=== PATIENT | female | born 1955 | race Hispanic/Latino ===

== ENCOUNTER 2016-06-06 20:17 | Emergency (ER) | payer OTHER ==
[2016-06-06 20:17] VITALS: BMI 21.4
[2016-06-06 20:44] VITALS: RESP 20
--- NOTE | 2016-06-06 21:14 | C.PDOC ---
History Of Present Illness 61 year old female with a history of anxiety and HTN, presents to the ED with complaints of an "anxiety attack". Patient states she feels anxious and reports she checked her blood pressure and noticed it was elevated. She is requesting medication for her anxiety and declined any work up or imaging. Previous records reviewed showing the patient was evaluated here several times for similar complaints. Time Seen by Provider: 06/06/16 21:01 Chief Complaint (Nursing): High Blood Sugar History Per: Patient History/Exam Limitations: no limitations Onset/Duration Of Symptoms: Hrs, Waxing/Waning Current Symptoms Are (Timing): Still Present Associated Symptoms: denies: Chest Pain Past Medical History Reviewed: Historical Data, Nursing Documentation, Vital Signs Vital Signs: Last Vital Signs Temp 97.6 F 06/06/16 22:05 Pulse 82 06/06/16 22:05 Resp 20 06/06/16 22:05 BP 151/86 H 06/06/16 22:05 Pulse Ox 97 06/06/16 22:06 - Medical History PMH: Anxiety (about health issues.), HTN, Migraine - [facility] Procedures INJECT/INFUSE NEC (11/23/12) Family History: States: Unknown Family Hx - Social History Hx Tobacco Use: No Hx Alcohol Use: No Hx Substance Use: No - Immunization History Hx Tetanus Toxoid Vaccination: No Hx Influenza Vaccination: No (DECLINES) Hx Pneumococcal Vaccination: No Review Of Systems Except As Marked, All Systems Reviewed And Found Negative. Constitutional: Negative for: Fever, Chills Cardiovascular: Negative for: Chest Pain, Palpitations Respiratory: Negative for: Cough, Shortness of Breath Gastrointestinal: Negative for: Nausea, Vomiting, Abdominal Pain Neurological: Negative for: Weakness, Numbness Physical Exam - Physical Exam Appears: Non-toxic, No Acute Distress, Other (+Slightly anxious appearing) Skin: Warm, Dry Head: Atraumatic, Normacephalic Eye(s): bilateral: Normal Inspection Oral Mucosa: Moist Chest: Symmetrical Cardiovascular: Rhythm Regular Respiratory: Normal Breath Sounds, No Accessory Muscle Use, No Rales, No Rhonchi , No Wheezing Extremity: Normal ROM Neurological/Psych: Oriented x3, Normal Speech, Normal Cognition ED Course And Treatment O2 Sat by Pulse Oximetry: 97 (Room air) Pulse Ox Interpretation: Normal Medical Decision Making Medical Decision Making: Patient treated with Xanax. pt declines any workup imaging, requesting "her anxiety to be treated". Upon reevaluation, patient is resting comfortably, no longer feels anxious, and is in no acute distress. Patient was instructed to follow up with her PMD in 1- 2 days for further evaluation. b/p improved. on phone in nad Disposition - Disposition Disposition: HOME/ ROUTINE Disposition Time: 22:05 Condition: STABLE Additional Instructions: please followup outpt. return to er with worsening symptoms or concerns. Instructions: Anxiety (ED), Hypertension (ED) - Clinical Impression Clinical Impression: Anxiety - Scribe Statement The provider has reviewed the documentation as recorded by the Scribe Ruchi Mathew. Provider Attestation: All medical record entries made by the Scribe were at my direction and personally dictated by me. I have reviewed the chart and agree that the record accurately reflects my personal performance of the history, physical exam, medical decision making, and the department course for this patient. I have also personally directed, reviewed, and agree with the discharge instructions and disposition.
[2016-06-06 22:05] VITALS: BP 151/86; PULSE 82
[2016-06-06 22:06] VITALS: TEMP 97.6; O2SAT 97
== END 2016-06-06 22:18 | disposition home or self-care (01) ==
LOC: C.ER 20:17
DX: F41.9 Anxiety disorder, unspecified (principal); I10 Essential (primary) hypertension

== ENCOUNTER 2016-06-27 15:11 | Emergency (ER) | payer MEDICAID, OTHER ==
[2016-06-27 15:25] VITALS: BMI 22.3
--- NOTE | 2016-06-27 16:35 | C.PDOC ---
History Of Present Illness 61 year old female with a history of anxiety, presents to the ED with complaints of developing a migraine after she had blood taken for blood work while at the hospital yesterday. She notes it got worse causing her anxiety to get worse and her blood pressure to elevate. She has not taken any of her medications and denies vomiting, fever, visual changes, or any other complaints at this time. Time Seen by Provider: 06/27/16 15:59 Chief Complaint (Nursing): Headache History Per: Patient History/Exam Limitations: no limitations Onset/Duration Of Symptoms: Days Current Symptoms Are (Timing): Still Present Severity: Mild Preceeding Symptoms: None Past Medical History Reviewed: Historical Data, Nursing Documentation, Vital Signs Vital Signs: Last Vital Signs Temp 98.0 F 06/27/16 18:14 Pulse 85 06/27/16 18:14 Resp 20 06/27/16 18:14 BP 168/89 H 06/27/16 18:34 Pulse Ox 99 06/27/16 18:42 - Medical History PMH: Anxiety (about health issues.), HTN, Migraine - [facility] Procedures INJECT/INFUSE NEC (11/23/12) Family History: States: Unknown Family Hx - Social History Hx Tobacco Use: No Hx Alcohol Use: No Hx Substance Use: No Review Of Systems Except As Marked, All Systems Reviewed And Found Negative. Constitutional: Positive for: Other (Elevated blood pressure). Negative for: Fever, Chills Neurological: Positive for: Headache (+Migraine) Psych: Positive for: Anxiety Physical Exam - Physical Exam Appears: Non-toxic, No Acute Distress, Other (+Anxious) Skin: Normal Color, Warm, Dry Head: Atraumatic, Normacephalic Eye(s): bilateral: Normal Inspection, PERRL, EOMI Oral Mucosa: Moist Neck: Supple Chest: Symmetrical, No Deformity Cardiovascular: Rhythm Regular Respiratory: Normal Breath Sounds, No Accessory Muscle Use Neurological/Psych: Oriented x3, Normal Speech, Normal Cognition, No Cerebellar Signs, Normal Motor, Normal Sensation ED Course And Treatment O2 Sat by Pulse Oximetry: 99 (Room air) Pulse Ox Interpretation: Normal Progress Note: Patient treated with Motrin but declined buspar. Medical Decision Making Medical Decision Making: BP improved without meds Pt feeling better post motrin, discussed anxiety as the cuase or al least making it worse however pt still declined buspar Post motrin feeing better No indication for further work up at this time Plan dc home Disposition Counseled Patient/Family Regarding: Diagnosis, Need For Followup - Disposition Referrals: Clinic,Med Surg [Primary Care Provider] - Disposition: HOME/ ROUTINE Disposition Time: 16:31 Condition: GOOD Additional Instructions: Take motrin for pain if needed Prescriptions: Ibuprofen [Motrin] 1 tab PO TID PRN #30 tab PRN Reason: .headache Instructions: Generalized Anxiety Disorder (ED), Acute Headache (ED) - Clinical Impression Clinical Impression: Anxiety about health, Headache - Scribe Statement The provider has reviewed the documentation as recorded by the Scribe Ruchi Mathew. Provider Attestation: All medical record entries made by the Scribe were at my direction and personally dictated by me. I have reviewed the chart and agree that the record accurately reflects my personal performance of the history, physical exam, medical decision making, and the department course for this patient. I have also personally directed, reviewed, and agree with the discharge instructions and disposition.
[2016-06-27 18:15] VITALS: PULSE 85; RESP 20; TEMP 98
[2016-06-27 18:17] VITALS: O2SAT 99
[2016-06-27 18:34] VITALS: BP 168/89
== END 2016-06-27 18:34 | disposition home or self-care (01) ==
LOC: SUPCPDRO 15:11 → C.ER 15:11
DX: F41.8 Other specified anxiety disorders (principal); R51 Headache

== ENCOUNTER 2016-07-07 13:19 | Emergency (ER) | payer OTHER ==
[2016-07-07 13:19] VITALS: BMI 22.3
[2016-07-07 13:25] VITALS: O2SAT 99
--- NOTE | 2016-07-07 14:02 | C.PDOC ---
History Of Present Illness 61 year old female presents to the ED requesting anxiety medication. Patient states she noticed her blood pressure was elevated at home and notes she has a prescription for Buspar from her PMD however she does not take it because it makes her dizzy. Patient has many prior visits for the same and no physical complaints at this time. Time Seen by Provider: 07/07/16 13:49 Chief Complaint (Nursing): High Blood Pressure History Per: Patient History/Exam Limitations: no limitations Onset/Duration Of Symptoms: Hrs Current Symptoms Are (Timing): Still Present Suicide/Self Injury Attempted (Context): None Associated Symptoms: Anxiety Past Medical History Reviewed: Historical Data, Nursing Documentation, Vital Signs Vital Signs: Last Vital Signs Temp 98.1 F 07/07/16 14:30 Pulse 82 07/07/16 14:30 Resp 17 07/07/16 14:30 BP 153/84 H 07/07/16 14:30 Pulse Ox 99 07/07/16 14:30 - Medical History PMH: Anxiety (about health issues.), HTN, Migraine - [facility] Procedures INJECT/INFUSE NEC (11/23/12) Family History: States: Unknown Family Hx - Social History Hx Tobacco Use: No Hx Alcohol Use: No Hx Substance Use: No - Immunization History Hx Tetanus Toxoid Vaccination: No Hx Influenza Vaccination: No (DECLINES) Hx Pneumococcal Vaccination: No Review Of Systems Except As Marked, All Systems Reviewed And Found Negative. Constitutional: Positive for: Other (+Elevated blood pressure). Negative for: Fever, Chills Cardiovascular: Negative for: Chest Pain Respiratory: Negative for: Shortness of Breath Neurological: Negative for: Weakness, Numbness Psych: Positive for: Anxiety Physical Exam - Physical Exam Appears: Non-toxic, No Acute Distress, Other (+hyperkenetic) Skin: Normal Color, Warm, Dry Head: Atraumatic, Normacephalic Eye(s): bilateral: Normal Inspection Oral Mucosa: Moist Chest: Symmetrical, No Deformity Cardiovascular: Rhythm Regular Respiratory: Normal Breath Sounds, No Accessory Muscle Use Extremity: Normal ROM Neurological/Psych: Oriented x3, Other (+Pressured speech) ED Course And Treatment O2 Sat by Pulse Oximetry: 99 (Room air) Pulse Ox Interpretation: Normal Progress Note: Patient treated with Klonopin. Medical Decision Making Medical Decision Making: anxiety, poorly controlled on Buspar x 1 week (with poor compliance) makes her dizzy Xanax gives her headaches. PMD out of town for 2 weeks. Explained unable to refill or prescribe controlled substances for chronic issues [place] reviewed- last Xanax rx 10/01, recent Buspar Rx not noted. Many prior evals for same, usually given Xanax PO mild elev BP related to anxiety, defer adjusting BP/HTN meds until anxiety better controlled. Disposition Doctor Will See Patient In The: Office Counseled Patient/Family Regarding: Studies Performed, Diagnosis - Disposition Referrals: Berto Molina MD [Doctor Oste[facility]] - Disposition: HOME/ ROUTINE Disposition Time: 14:01 Condition: GOOD Additional Instructions: you were given Klonopin 0.5 mg x 1 dose in the ER Please follow-up with your PMD for further adjustments and refills of your chronic anxiety medications. Instructions: Anxiety (ED) - Clinical Impression Clinical Impression: Anxiety, Anxiety about health - Scribe Statement The provider has reviewed the documentation as recorded by the Scribe Ruchi Mathew. Provider Attestation: All medical record entries made by the Gregoriaibchristie were at my direction and personally dictated by me. I have reviewed the chart and agree that the record accurately reflects my personal performance of the history, physical exam, medical decision making, and the department course for this patient. I have also personally directed, reviewed, and agree with the discharge instructions and disposition.
[2016-07-07 14:31] VITALS: BP 153/84; PULSE 82; RESP 17; TEMP 98.1
== END 2016-07-07 15:00 | disposition home or self-care (01) ==
LOC: C.ER 13:19
DX: I10 Essential (primary) hypertension (principal); F06.4 Anxiety disorder due to known physiological condition

== ENCOUNTER 2016-07-08 12:55 | Emergency (ER) | payer OTHER ==
[2016-07-08 12:55] VITALS: BMI 22.3
[2016-07-08 13:03] VITALS: BP 156/94; PULSE 100; RESP 18; TEMP 97.7; O2SAT 98
--- NOTE | 2016-07-08 13:17 | C.PDOC ---
History Of Present Illness 61 y/o female presents to the ED requesting Klonipin Rx. Pt has had multiple ER visits since 05/2016 for similar symptoms. Pt seem 07/07 given 1 dose Klonipin and is requesting new Rx for same; no prior Rx for klonipin. Pt states tried to see PMD for Rx but PMD is on vacation this week. Pt states does not wish to take Buspar due to side effects. Pt denies other symptoms. REQUESTING KLONIPIN RX. MULTIPLE ER VISITS SINCE 05/2016 FOR SIM SX. SEEN 07/07, GIVEN KLONIPIN AND IS REQUESTING NEW RX FOR SAME. NO PRIOR RX FOR SAME. PS TRIED TO SEE PMD FOR RX BUT PMD ON VACATION THIS WEEK. PS DOES NOT WISH TO TAKE BUSPAR DUE TO SIDE EFFECTS. DENIES OTHER SX EXAM NEG MDM ADVISED NEED TO SEE PMD OR CRISIS FOR FURTHER ANXIETY MED MANAGEMENT. PT REFUSING CRISIS EVAL. Time Seen by Provider: 07/08/16 13:06 Chief Complaint (Nursing): Med Refill History Per: Patient History/Exam Limitations: no limitations Severity: None Reports Recently: Seen In ED Recent travel outside of the [place]: No Past Medical History Reviewed: Historical Data, Nursing Documentation, Vital Signs Vital Signs: Last Vital Signs Temp 97.7 F 07/08/16 13:02 Pulse 100 H 07/08/16 13:02 Resp 18 07/08/16 13:02 BP 156/94 H 07/08/16 13:02 Pulse Ox 98 07/08/16 13:19 - Medical History PMH: Anxiety (about health issues.), HTN, Migraine - [facility] Procedures INJECT/INFUSE NEC (11/23/12) Family History: States: Unknown Family Hx - Social History Hx Tobacco Use: No Hx Alcohol Use: No Hx Substance Use: No - Immunization History Hx Tetanus Toxoid Vaccination: No Hx Influenza Vaccination: No (DECLINES) Hx Pneumococcal Vaccination: No Review Of Systems Except As Marked, All Systems Reviewed And Found Negative. Physical Exam - Physical Exam Appears: Non-toxic, No Acute Distress Skin: Warm, Dry Head: Atraumatic, Normacephalic Cardiovascular: Rhythm Regular Respiratory: Normal Breath Sounds, No Rales, No Rhonchi, No Wheezing Extremity: Bilateral: Atraumatic Neurological/Psych: Oriented x3 ED Course And Treatment O2 Sat by Pulse Oximetry: 98 (on room air) Pulse Ox Interpretation: Normal Progress - Re-Evaluation Re-evaluation Note: 07/08/16 13:19 [place] RX REVIEWED 09/21/2015 LORAZEPAM 0.5 MG TABLET 5 1 - Data Reviewed Data Reviewed: Old records, Other Medical Decision Making Medical Decision Making: Advised patient that she needs to see PMD or CRISIS for further anxiety medication management. Pt refusing CRISIS evaluation. Disposition Counseled Patient/Family Regarding: Diagnosis, Need For Followup - Disposition Referrals: YOUR,PMD [Other] Disposition: HOME/ ROUTINE Disposition Time: 13:15 Condition: GOOD Additional Instructions: SEE YOUR PMD FOR YOUR REQUESTING MED REFILL. Instructions: Medicine Refill (ED) - Clinical Impression Clinical Impression: Review of medication, Anxiety - Scribe Statement The provider has reviewed the documentation as recorded by the Sridhar Amador Provider Attestation: All medical record entries made by the Sridhar were at my direction and personally dictated by me. I have reviewed the chart and agree that the record accurately reflects my personal performance of the history, physical exam, medical decision making, and the department course for this patient. I have also personally directed, reviewed, and agree with the discharge instructions and disposition.
== END 2016-07-08 13:40 | disposition home or self-care (01) ==
LOC: C.ER 12:55
DX: F41.9 Anxiety disorder, unspecified (principal)

== ENCOUNTER 2016-09-06 20:13 | Emergency (ER) | payer OTHER ==
[2016-09-06 20:13] VITALS: BMI 22.3
[2016-09-06 20:24] VITALS: PULSE 95; RESP 20; TEMP 98.7; O2SAT 98
[2016-09-06] MEDS ORDERED: hydrOXYzine HCl 25 mg/ml Inj IM STA (20:43)
--- NOTE | 2016-09-06 20:44 | C.PDOC ---
Chief Complaint (Nursing): Anxiety Past Medical History Vital Signs: Last Vital Signs Temp 98.7 F 09/06/16 20:16 Pulse 95 H 09/06/16 20:16 Resp 20 09/06/16 20:16 BP 178/83 H 09/06/16 20:16 Pulse Ox 98 09/06/16 20:16 - Medical History PMH: Anxiety (about health issues.), HTN, Migraine - [facility] Procedures INJECT/INFUSE NEC (11/23/12) Family History: States: Unknown Family Hx - Social History Hx Tobacco Use: No Hx Alcohol Use: No Hx Substance Use: No - Immunization History Hx Tetanus Toxoid Vaccination: No Hx Influenza Vaccination: No (DECLINES) Hx Pneumococcal Vaccination: No ED Course And Treatment O2 Sat by Pulse Oximetry: 98 Progress Note: BP- 143/62
--- NOTE | 2016-09-06 20:46 | C.PDOC ---
History Of Present Illness A 61 y/o female with a Hx of vertigo and anxiety disorder, c/o feeling anxious, dizziness, and having high BP at home today. Pt denies fever, chills, nausea, vomiting, diarrhea, SOB, Chest pain, Palpitations, Diaphoresis, lightheaded, lower extremity pain, suicidal or homicidal ideation, or any other complaints. Time Seen by Provider: 09/06/16 20:46 Chief Complaint (Nursing): Anxiety History Per: Patient History/Exam Limitations: no limitations Onset/Duration Of Symptoms: Hrs Current Symptoms Are (Timing): Still Present Suicide/Self Injury Attempted (Context): None Modifying Factor(s): None Severity: Mild Associated Symptoms: Anxiety. denies: Suicidal Thoughts, Suicidal Plan Involuntary Hold By: None Recent travel outside of the [place]: No Additional History Per: Patient Past Medical History Reviewed: Historical Data, Nursing Documentation, Vital Signs Vital Signs: Last Vital Signs Temp 98.7 F 09/06/16 20:16 Pulse 95 H 09/06/16 20:16 Resp 20 09/06/16 20:16 BP 143/62 09/06/16 20:50 Pulse Ox 98 09/06/16 22:09 - Medical History PMH: Anxiety (about health issues.), HTN, Migraine Other PMH: vertigo - [facility] Procedures INJECT/INFUSE NEC (11/23/12) Family History: States: Unknown Family Hx - Social History Hx Tobacco Use: No Hx Alcohol Use: No Hx Substance Use: No - Immunization History Hx Tetanus Toxoid Vaccination: No Hx Influenza Vaccination: No (DECLINES) Hx Pneumococcal Vaccination: No Review Of Systems Except As Marked, All Systems Reviewed And Found Negative. Constitutional: Positive for: Other (High BP). Negative for: Fever, Chills, Sweats Cardiovascular: Negative for: Chest Pain, Palpitations, Light Headedness Respiratory: Negative for: Shortness of Breath Gastrointestinal: Negative for: Nausea, Vomiting, Diarrhea Musculoskeletal: Negative for: Leg Pain Neurological: Positive for: Dizziness Psych: Positive for: Anxiety. Negative for: Suicidal ideation, Other ( Homicidal ideation) Physical Exam - Physical Exam Appears: Non-toxic, No Acute Distress, Other (BP 143/62) Skin: Warm, Dry Head: Atraumatic, Normacephalic Eye(s): bilateral: Normal Inspection Oral Mucosa: Moist Throat: Normal, No Exudate Chest: Symmetrical Cardiovascular: Rhythm Regular, No Murmur Respiratory: Normal Breath Sounds, No Accessory Muscle Use, No Rales, No Rhonchi , No Wheezing Gastrointestinal/Abdominal: Soft, No Tenderness Neurological/Psych: Oriented x3, Normal Speech, Normal Cognition, Other (No focal deficit) Gait: Steady ED Course And Treatment O2 Sat by Pulse Oximetry: 98 (RA) Pulse Ox Interpretation: Normal Progress Note: BP- 143/62 Medical Decision Making Medical Decision Making: Impression: A 61 y/o female c/o feeling anxious, dizziness, and having high BP at home today. Plans: Atarax Reassess Pt has frequent visit of the same complaint of dizziness and anxiety and has been wanting refills of chronic pain medications. Disposition Counseled Patient/Family Regarding: Diagnosis - Disposition Referrals: at [facility] [Outside] Disposition Time: 22:10 Condition: STABLE Prescriptions: hydrOXYzine HCl [Atarax] 10 mg PO TID #10 tab Instructions: Generalized Anxiety Disorder (ED) - POA Present On Arrival: None - Clinical Impression Clinical Impression: Anxiety - Scribe Statement The provider has reviewed the documentation as recorded by the Scribe Tony cerrato All medical record entries made by the Scribe were at my direction and personally dictated by me. I have reviewed the chart and agree that the record accurately reflects my personal performance of the history, physical exam, medical decision making, and the department course for this patient. I have also personally directed, reviewed, and agree with the discharge instructions and disposition.
[2016-09-06 20:50] VITALS: BP 143/62
== END 2016-09-06 22:31 | disposition home or self-care (01) ==
LOC: C.ER 20:13
DX: F41.9 Anxiety disorder, unspecified (principal)

== ENCOUNTER 2017-12-22 10:52 | Observation (INO) | payer OTHER ==
[2017-12-22 10:52] VITALS: BMI 24.0
[2017-12-22 12:23] LABS: BASO # 0.1 K/uL (0.0-0.2); BASO % 0.8 % (0.0-2.0); EOS # 0.2 K/uL (0.0-0.7); EOS % 2.5 % (0.0-4.0); HEMOGLOBIN 12.8 g/dL (11.0-16.0); LYMPH # 1.4 K/uL (1.0-4.3); LYMPH % 18.2 % (20.0-40.0); MEAN CELL VOLUME 80.6 fL (81.0-99.0); MEAN CORPUSCULAR HEMOGLOBIN 26.5 pg (27.0-31.0); MEAN CORPUSCULAR HGB CONC 32.9 g/dL (33.0-37.0); MEAN PLATELET VOLUME 11.1 fL (7.2-11.7); MONO # 0.8 K/uL (0.0-0.8); MONO % 9.6 % (0.0-10.0); NEUT # 5.5 K/uL (1.8-7.0); NEUT % 68.9 % (50.0-75.0); RBC 4.81 Mil/uL (3.80-5.20); RED CELL DISTRIBUTION WIDTH 13.6 % (11.5-14.5); WHITE BLOOD COUNT 7.9 K/uL (4.8-10.8)
[2017-12-22 12:35] LABS: ALB/GLOB RATIO 1.3 (1.0-2.1); ALBUMIN 4.3 g/dL (3.5-5.0); ALT/SGPT 41 U/L (9-52); AST/SGOT 41 U/L (14-36); BLOOD UREA NITROGEN 16 mg/dL (7-17); CALCIUM 9.5 mg/dl (8.6-10.4); GFR NON-AFRICAN AMERICAN > 60
[2017-12-22 12:36] LABS: INR 1.1
--- NOTE | 2017-12-22 13:06 | C.PDOC ---
History Of Present Illness 62 year old female patient presents to the ER with c/o fever, cough and pain in the middle of the chest for x4 days. Patient reports she has been in contact with people with upper respiratory symptoms. Patient states she went to her PMD x2 days ago but the office was packed so she was not able to see the PMD. Patient went to [facility] yesterday where she received a CXR which showed bronchitis. Patient was prescribed Zithromax but did not fill out prescription. Patient bp was 210/110, stated she took Xanax and came to the ER. Time Seen by Provider: 12/22/17 11:22 Chief Complaint (Nursing): Chest Pain History Per: Patient History/Exam Limitations: no limitations Onset/Duration Of Symptoms: Days (x4) Current Symptoms Are (Timing): Still Present Quality: "Pain" Past Medical History Reviewed: Historical Data, Nursing Documentation, Vital Signs Vital Signs: Last Vital Signs Temp 98.4 F 12/22/17 11:03 Pulse 108 H 12/22/17 11:03 Resp 20 12/22/17 11:03 BP 159/96 H 12/22/17 11:03 Pulse Ox 96 12/22/17 11:03 - Medical History PMH: Anxiety (about health issues.), HTN, Migraine - [facility] Procedures INJECT/INFUSE NEC (11/23/12) Family History: States: Hypertension - Social History Hx Tobacco Use: No Hx Alcohol Use: No Hx Substance Use: No - Immunization History Hx Tetanus Toxoid Vaccination: No Hx Influenza Vaccination: No (DECLINES) Hx Pneumococcal Vaccination: No Review Of Systems Except As Marked, All Systems Reviewed And Found Negative. Constitutional: Positive for: Fever Cardiovascular: Positive for: Chest Pain Respiratory: Positive for: Cough Physical Exam - Physical Exam Appears: Non-toxic, Other (slightly anxious) Skin: Normal Color, Warm, Dry Head: Normacephalic Eye(s): bilateral: Normal Inspection, EOMI Oral Mucosa: Moist Throat: Normal Chest: Symmetrical, No Deformity Cardiovascular: Rhythm Regular Respiratory: Normal Breath Sounds Extremity: Normal ROM (x4) Neurological/Psych: Oriented x3, Normal Speech ED Course And Treatment - Laboratory Results Result Diagrams: 12/22/17 12:19 12/22/17 12:19 ECG: Interpreted By Me, Viewed By Me ECG Interpretation: Normal, No Acute Changes Rate From EC O2 Sat by Pulse Oximetry: 96 (RA) Pulse Ox Interpretation: Normal - Other Rad chest X-Ray: Read By Radiologist Interpretation: Accession No. : [id number]. Patient Name / ID : SHANNON BRADY / [id number]. Exam Date : 12/22/2017 12:08:15 ( Approved ). Study Comment : Sex / Age : F / 62Y. Creator : Juno Alvarado MD. Dictator : Juno Alvarado MD. Model Maker Plaster : Refrigeration System Installer : Juno Alvarado MD. Approver2 : Report Date : 12/22/2017 14:26:40. My Comment : . Date of service: 12/22/2017. PROCEDURE: CHEST RADIOGRAPH, 1 VIEW. HISTORY: SOB, cough, CP. COMPARISON: Comparison chest 02/03/2016. FINDINGS: LUNGS: Mild left basilar atelectasis and/or scarring. PLEURA: No pneumothorax or pleural fluid seen. CARDIOVASCULAR: Normal. OSSEOUS STRUCTURES: No significant abnormalities. VISUALIZED UPPER ABDOMEN: Normal. OTHER FINDINGS: None. IMPRESSION: Mild left basilar atelectasis and/or scarring Progress Note: Impression: fever, cough and chest pain. Plans: -- EKG. -- chem lab. -- blood work. -- CXR. -- UA Disposition - Disposition Disposition: HOSPITALIZED Disposition Time: 13:50 Condition: FAIR - Clinical Impression Clinical Impression: Chest pain Decision To Admit - Pt Status Changed To: Hospital Disposition Of: Observation - . Bed Request Type: Telemetry Admitting Physician: Dewey Martinez Patient Diagnosis: Chest pain
[2017-12-22 13:11] LABS: URINE BILIRUBIN NEGATIVE (NEGATIVE); URINE BLOOD NEGATIVE (NEGATIVE); URINE CLARITY Clear (Clear); URINE COLOR Colorless (YELLOW); URINE GLUCOSE (UA) NORMAL (Normal); URINE LEUKOCYTE ESTERASE NEG Leu/uL (Negative); URINE PROTEIN NEGATIVE (NEGATIVE); URINE UROBILINOGEN NORMAL mg/dL (0.2-1.0)
--- NOTE | 2017-12-22 14:28 | RAD ---
Date of service: 12/22/2017 PROCEDURE: CHEST RADIOGRAPH, 1 VIEW HISTORY: SOB, cough, CP COMPARISON: Comparison chest 02/03/2016 FINDINGS: LUNGS: Mild left basilar atelectasis and/or scarring PLEURA: No pneumothorax or pleural fluid seen. CARDIOVASCULAR: Normal. OSSEOUS STRUCTURES: No significant abnormalities. VISUALIZED UPPER ABDOMEN: Normal. OTHER FINDINGS: None. IMPRESSION: Mild left basilar atelectasis and/or scarring
[2017-12-22] MEDS ORDERED: Azithromycin 500 MG in Sodium Chloride 0.9% 250 ML IVPB SCH (17:15)
[2017-12-22] MEDS ORDERED: Azithromycin 500mg/250ML NS 500 MG/250 ML BAG IVPB ONE (17:30)
[2017-12-22 18:33] VITALS: RESP 20
[2017-12-22] MEDS ORDERED: Pneumococcal 23-Valent Vaccine IM ONE (19:19)
[2017-12-22] MEDS ORDERED: Influenza Vaccine 60 MCG/0.5 ML SYR (3 yr & up) IM ONE (19:23)
--- NOTE | 2017-12-22 19:39 | CP.PCM.HP ---
<Brett Balbuena - Last Filed: 12/22/17 19:35> History of Present Illness - History of Present Illness History of Present Illness: PGY-1 H&P note for Dr Dewey Martinez cc: cough with chest tightness, high blood pressure This is a 62 yo female of HTN, anxiety, migraine and vertigo who came to hospital for chest pain and tightness associated with productive coughing and fevers that started on sunday. Patient said she went [place] a recreational center and was exposed to people being sick there. Patient went to [facility] and was discharge with a diagnosis of bronchitis and was given azythromycin PO which she did not filled. Patient decided to come to the hospital after continuing symptoms of chest pain and coughing. She checke her blood pressure at home and was 197/112 and her heart rate was 122. Patient says she took both her blood pressure medication and her anxiety medication today before coming to the hospital. Patient denies shortness of breath, nausea, vomiting, abdominal pain, diarrhea, constipation, rashes or dysuria. All: Penicillin Meds: Metoprolol (toprol XL) 25 mg PO daily, Xanax PO TID Pmhx: HTN, anxiety, migraines, vertigo Pshx: hysterectomy (2011) Fmhx: DM, HTN, anxiety Sochx: denies tobacco, alcohol or illicit drug use. Patient is currently on disability Present on Admission - Present on Admission Any Indicators Present on Admission: No Review of Systems - Constitutional Constitutional: Chills, Fever - EENT Eyes: absent: Blurred Vision - Cardiovascular Cardiovascular: Chest Pain. absent: Dyspnea - Respiratory Respiratory: Cough. absent: Dyspnea - Gastrointestinal Gastrointestinal: absent: Abdominal Pain, Constipation, Diarrhea, Nausea, Vo miting - Genitourinary Genitourinary: absent: Dysuria, Urinary Frequency - Musculoskeletal Musculoskeletal: absent: Muscle Weakness - Integumentary Integumentary: absent: Rash - Neurological Neurological: absent: Dizziness - Hematologic/Lymphatic Hematologic: absent: Easy Bleeding, Easy Bruising Past Patient History - Infectious Disease Hx of Infectious Diseases: None - Past Social History Smoking Status: Never Smoked - CARDIAC Hx Hypertension: Yes - PULMONARY Hx Tuberculosis: No - NEUROLOGICAL Hx Migraine: Yes - HEMATOLOGICAL/ONCOLOGICAL Hx Human Immunodeficiency Virus (HIV): No - GENITOURINARY/GYNECOLOGICAL Hx Sexually Transmitted Disorders: No - PSYCHIATRIC Hx Anxiety: Yes (about health issues.) Hx Substance Use: No - SURGICAL HISTORY Hx Surgeries: Yes Hx Hysterectomy: Yes - ANESTHESIA Hx Anesthesia: Yes Hx Anesthesia Reactions: No Hx Malignant Hyperthermia: No Meds Allergies/Adverse Reactions: Allergies Allergy/AdvReac Type Severity Reaction Status Date / Time Penicillins Allergy SHORTNESS Verified 12/21/17 13:11 OF BREATH Physical Exam - Constitutional Appears: Non-toxic, No Acute Distress - Head Exam Head Exam: ATRAUMATIC, NORMAL INSPECTION, NORMOCEPHALIC - Eye Exam Eye Exam: EOMI, Normal appearance - ENT Exam ENT Exam: Mucous Membranes Moist, Normal Exam - Neck Exam Neck exam: Positive for: Normal Inspection - Respiratory Exam Respiratory Exam: Decreased Breath Sounds, NORMAL BREATHING PATTERN. absent: Rales, Rhonchi, Wheezes - Cardiovascular Exam Cardiovascular Exam: Tachycardia, REGULAR RHYTHM, +S1, +S2 - GI/Abdominal Exam GI & Abdominal Exam: Normal Bowel Sounds, Soft. absent: Distended, Guarding, Tenderness - Extremities Exam Extremities exam: Positive for: full ROM, normal inspection. Negative for: tenderness - Back Exam Back exam: FULL ROM, NORMAL INSPECTION - Neurological Exam Neurological exam: Alert, Oriented x3 - Psychiatric Exam Psychiatric exam: Normal Affect, Normal Mood - Skin Skin Exam: Dry, Intact, Normal Color, Warm Results - Vital Signs Recent Vital Signs: Last Vital Signs Temp 98.2 F 12/22/17 18:31 Pulse 92 H 12/22/17 18:31 Resp 20 12/22/17 18:31 BP 155/82 H 12/22/17 18:31 Pulse Ox 97 12/22/17 18:31 - Labs Result Diagrams: 12/22/17 12:19 12/22/17 12:19 Labs: Laboratory Results - last 24 hr 12/22/17 12/22/17 12/22/17 12:19 12:19 12:19 WBC 7.9 RBC 4.81 Hgb 12.8 Hct 38.7 MCV 80.6 L MCH 26.5 L MCHC 32.9 L RDW 13.6 Plt Count 184 MPV 11.1 Neut % (Auto) 68.9 Lymph % (Auto) 18.2 L [place] % (Auto) 9.6 Eos % (Auto) 2.5 Baso % (Auto) 0.8 Neut # (Auto) 5.5 Lymph # (Auto) 1.4 [place] # (Auto) 0.8 Eos # (Auto) 0.2 Baso # (Auto) 0.1 PT 12.0 INR 1.1 APTT 29 Sodium 142 Potassium 4.1 Chloride 103 Carbon Dioxide 27 Anion Gap 16 BUN 16 Creatinine 0.7 Est GFR ( Amer) > 60 Est GFR (Non-Af Amer) > 60 Random Glucose 99 Calcium 9.5 Total Bilirubin 0.3 AST 41 H D ALT 41 Alkaline Phosphatase 81 Total Creatine Kinase 83 CK-MB (Mass) 0.80 Troponin I < 0.0120 Total Protein 7.6 Albumin 4.3 Globulin 3.2 Albumin/Globulin Ratio 1.3 Urine Color Urine Clarity Urine pH Ur Specific [place] Urine Protein Urine Glucose (UA) Urine Ketones Urine Blood Urine Nitrate Urine Bilirubin Urine Urobilinogen Ur Leukocyte Esterase Urine WBC (Auto) Urine RBC (Auto) 12/22/17 12/22/17 12:58 17:36 WBC RBC Hgb Hct MCV MCH MCHC RDW Plt Count MPV Neut % (Auto) Lymph % (Auto) [place] % (Auto) Eos % (Auto) Baso % (Auto) Neut # (Auto) Lymph # (Auto) [place] # (Auto) Eos # (Auto) Baso # (Auto) PT INR APTT Sodium Potassium Chloride Carbon Dioxide Anion Gap BUN Creatinine Est GFR ( Amer) Est GFR (Non-Af Amer) Random Glucose Calcium Total Bilirubin AST ALT Alkaline Phosphatase Total Creatine Kinase CK-MB (Mass) Troponin I < 0.0120 Total Protein Albumin Globulin Albumin/Globulin Ratio Urine Color Colorless Urine Clarity Clear Urine pH 6.0 Ur Specific [place] 1.003 Urine Protein Negative Urine Glucose (UA) Normal Urine Ketones Negative Urine Blood Negative Urine Nitrate Negative Urine Bilirubin Negative Urine Urobilinogen Normal Ur Leukocyte Esterase Neg Urine WBC (Auto) < 1 Urine RBC (Auto) < 1 Assessment & Plan - Assessment and Plan (Free Text) Plan: Chest pain R/O MN -EKG: normal sinus rhythm -troponin x1 negative, follow up 2nd and third troponin -CK-MB negative -chest x ray: mild left basilar atelectasis and/or scarring Cough, r/o bronchitis vs pneumonia - Start Azithromycin 500mg IVPB Q24 hr - Blood cultures: f/u - afebrile, stable, no leukocytosis - f/u am labs (CBC, CMP) Hypertension - BP now is 153/82, patient's baseline is 130-150 systolic, HR 92 -Continue home med Tropol XL 23 mg PO daily - continue checking BP Hx of anxiety - Xanax 1mg PO TID PRN ppx - SCDs - Heart healthy diet - Pain management: tylenol 650 mg PO Q6 PRN Plan discussed with Dr Dewey Balbuena, PGY-1 - Date & Time Date: 12/22/17 Time: 17:30 <Dewey Martinez H - Last Filed: 12/23/17 07:32> Results - Vital Signs Recent Vital Signs: Last Vital Signs Temp 98.4 F 12/23/17 05:29 Pulse 84 12/23/17 05:29 Resp 20 12/23/17 05:29 BP 158/98 H 12/23/17 05:29 Pulse Ox 98 12/22/17 23:35 - Labs Result Diagrams: 12/23/17 07:16 12/22/17 12:19 Labs: Laboratory Results - last 24 hr 12/22/17 12/22/17 12/22/17 12:19 12:19 12:19 WBC 7.9 RBC 4.81 Hgb 12.8 Hct 38.7 MCV 80.6 L MCH 26.5 L MCHC 32.9 L RDW 13.6 Plt Count 184 MPV 11.1 Neut % (Auto) 68.9 Lymph % (Auto) 18.2 L [place] % (Auto) 9.6 Eos % (Auto) 2.5 Baso % (Auto) 0.8 Neut # (Auto) 5.5 Lymph # (Auto) 1.4 [place] # (Auto) 0.8 Eos # (Auto) 0.2 Baso # (Auto) 0.1 PT 12.0 INR 1.1 APTT 29 Sodium 142 Potassium 4.1 Chloride 103 Carbon Dioxide 27 Anion Gap 16 BUN 16 Creatinine 0.7 Est GFR ( Amer) > 60 Est GFR (Non-Af Amer) > 60 Random Glucose 99 Calcium 9.5 Total Bilirubin 0.3 AST 41 H D ALT 41 Alkaline Phosphatase 81 Total Creatine Kinase 83 CK-MB (Mass) 0.80 Troponin I < 0.0120 Total Protein 7.6 Albumin 4.3 Globulin 3.2 Albumin/Globulin Ratio 1.3 Urine Color Urine Clarity Urine pH Ur Specific [place] Urine Protein Urine Glucose (UA) Urine Ketones Urine Blood Urine Nitrate Urine Bilirubin Urine Urobilinogen Ur Leukocyte Esterase Urine WBC (Auto) Urine RBC (Auto) 12/22/17 12/22/17 12/22/17 12:58 17:36 23:34 WBC RBC Hgb Hct MCV MCH MCHC RDW Plt Count MPV Neut % (Auto) Lymph % (Auto) [place] % (Auto) Eos % (Auto) Baso % (Auto) Neut # (Auto) Lymph # (Auto) [place] # (Auto) Eos # (Auto) Baso # (Auto) PT INR APTT Sodium Potassium Chloride Carbon Dioxide Anion Gap BUN Creatinine Est GFR ( Amer) Est GFR (Non-Af Amer) Random Glucose Calcium Total Bilirubin AST ALT Alkaline Phosphatase Total Creatine Kinase CK-MB (Mass) Troponin I < 0.0120 < 0.0120 Total Protein Albumin Globulin Albumin/Globulin Ratio Urine Color Colorless Urine Clarity Clear Urine pH 6.0 Ur Specific [place] 1.003 Urine Protein Negative Urine Glucose (UA) Normal Urine Ketones Negative Urine Blood Negative Urine Nitrate Negative Urine Bilirubin Negative Urine Urobilinogen Normal Ur Leukocyte Esterase Neg Urine WBC (Auto) < 1 Urine RBC (Auto) < 1 12/23/17 07:16 WBC 7.8 RBC 4.57 Hgb 12.3 Hct 37.1 MCV 81.0 MCH 26.8 L MCHC 33.1 RDW 13.7 Plt Count 179 MPV 10.9 Neut % (Auto) 55.8 Lymph % (Auto) 26.6 [place] % (Auto) 12.2 H Eos % (Auto) 4.6 H Baso % (Auto) 0.8 Neut # (Auto) 4.3 Lymph # (Auto) 2.1 [place] # (Auto) 1.0 H Eos # (Auto) 0.4 Baso # (Auto) 0.1 PT INR APTT Sodium Potassium Chloride Carbon Dioxide Anion Gap BUN Creatinine Est GFR ( Amer) Est GFR (Non-Af Amer) Random Glucose Calcium Total Bilirubin AST ALT Alkaline Phosphatase Total Creatine Kinase CK-MB (Mass) Troponin I Total Protein Albumin Globulin Albumin/Globulin Ratio Urine Color Urine Clarity Urine pH Ur Specific [place] Urine Protein Urine Glucose (UA) Urine Ketones Urine Blood Urine Nitrate Urine Bilirubin Urine Urobilinogen Ur Leukocyte Esterase Urine WBC (Auto) Urine RBC (Auto) Attending/Attestation - Attestation I have personally seen and examined this patient.: Yes I have fully participated in the care of the patient.: Yes I have reviewed all pertinent clinical information: Yes Notes (Text): 12/23/17 07:29 Medical attending: Patient was seen and examined by me last night with the medical residents in the ER. The patient was not in any acute distress - her blood pressure was previously higher and she attributes this to her excessive anxiety and she came in. I explained to patient that considering these very high number we should add on additional medication for her BP however she declined saying that would make her even more nervous. She came previously for coughing and probably has bronchitis and was given an RX for azithromycin. So will continue with IV azithromycin I explained to patient that probably will be discharged next day provided lab work remains stable Dewey Martinez
[2017-12-23 05:30] VITALS: PULSE 84; TEMP 98.4
[2017-12-23 07:24] LABS: BASO # 0.1 K/uL (0.0-0.2); BASO % 0.8 % (0.0-2.0); EOS # 0.4 K/uL (0.0-0.7); EOS % 4.6 % (0.0-4.0); HEMOGLOBIN 12.3 g/dL (11.0-16.0); LYMPH # 2.1 K/uL (1.0-4.3); LYMPH % 26.6 % (20.0-40.0); MEAN CORPUSCULAR HEMOGLOBIN 26.8 pg (27.0-31.0); MEAN CORPUSCULAR HGB CONC 33.1 g/dL (33.0-37.0); MEAN PLATELET VOLUME 10.9 fL (7.2-11.7); MONO % 12.2 % (0.0-10.0); NEUT # 4.3 K/uL (1.8-7.0); NEUT % 55.8 % (50.0-75.0); NRBC % 0.1 % (0.0-2.0); RBC 4.57 Mil/uL (3.80-5.20); RED CELL DISTRIBUTION WIDTH 13.7 % (11.5-14.5); WHITE BLOOD COUNT 7.8 K/uL (4.8-10.8)
[2017-12-23 07:47] LABS: ALB/GLOB RATIO 1.3 (1.0-2.1); ALBUMIN 3.9 g/dL (3.5-5.0); ALT/SGPT 35 U/L (9-52); AST/SGOT 33 U/L (14-36); BLOOD UREA NITROGEN 15 mg/dL (7-17); CALCIUM 9.2 mg/dl (8.6-10.4); GFR NON-AFRICAN AMERICAN > 60
[2017-12-23 08:39] VITALS: O2SAT 95
--- NOTE | 2017-12-23 09:06 | CP.PCM.DIS ---
Provider - Provider Date of Admission: 12/22/17 13:48 Attending physician: Dewey Martinez DO Primary care physician: Dr Yuan Echeverria Time Spent in preparation of Discharge (in minutes): 29 Diagnosis - Discharge Diagnosis (1) Anxiety Status: Acute Comment: Patient looked much improved with xanax. She reported very high systolic BPs at home and after taking xanax and her blood pressure medication her numbers were better in the ER (2) Chest pain Status: Suspected Comment: Patient had three negative CE and review of EKG is stable. On telemetry she was NSR overnight and did not show arrthmias. (3) Bronchitis Status: Suspected Comment: She reports some coughing. CXRAY did not show infiltrates. She is afebrile. WBC stable. Will send home with a ZPack (4) Hypertension Status: Chronic Comment: She tells me that she usually breaks her home medication for BP the Metoprolol succnate in half. I tried to explain to her that she needs to take the whole thing. Also I suggested that she start a second blood pressure medication - however she explained she did not feel comfortable with this and so want to speak with her primary physician Hospital Course - Lab Results Lab Results: Most Recent Lab Values WBC 7.8 K/uL (4.8-10.8) 12/23/17 07:16 RBC 4.57 Mil/uL (3.80-5.20) 12/23/17 07:16 Hgb 12.3 g/dL (11.0-16.0) 12/23/17 07:16 Hct 37.1 % (34.0-47.0) 12/23/17 07:16 MCV 81.0 fL (81.0-99.0) 12/23/17 07:16 MCH 26.8 pg (27.0-31.0) L 12/23/17 07:16 MCHC 33.1 g/dL (33.0-37.0) 12/23/17 07:16 RDW 13.7 % (11.5-14.5) 12/23/17 07:16 Plt Count 179 K/uL (130-400) 12/23/17 07:16 MPV 10.9 fL (7.2-11.7) 12/23/17 07:16 Neut % (Auto) 55.8 % (50.0-75.0) 12/23/17 07:16 Lymph % (Auto) 26.6 % (20.0-40.0) 12/23/17 07:16 [place] % (Auto) 12.2 % (0.0-10.0) H 12/23/17 07:16 Eos % (Auto) 4.6 % (0.0-4.0) H 12/23/17 07:16 Baso % (Auto) 0.8 % (0.0-2.0) 12/23/17 07:16 Neut # (Auto) 4.3 K/uL (1.8-7.0) 12/23/17 07:16 Lymph # (Auto) 2.1 K/uL (1.0-4.3) 12/23/17 07:16 [place] # (Auto) 1.0 K/uL (0.0-0.8) H 12/23/17 07:16 Eos # (Auto) 0.4 K/uL (0.0-0.7) 12/23/17 07:16 Baso # (Auto) 0.1 K/uL (0.0-0.2) 12/23/17 07:16 PT 12.0 SECONDS (9.7-12.2) 12/22/17 12:19 INR 1.1 12/22/17 12:19 APTT 29 SECONDS (21-34) 12/22/17 12:19 Sodium 143 mmol/L (132-148) 12/23/17 07:16 Potassium 4.8 mmol/L (3.6-5.2) 12/23/17 07:16 Chloride 105 mmol/L (98-107) 12/23/17 07:16 Carbon Dioxide 29 mmol/L (22-30) 12/23/17 07:16 Anion Gap 14 (10-20) 12/23/17 07:16 BUN 15 mg/dL (7-17) 12/23/17 07:16 Creatinine 0.8 mg/dL (0.7-1.2) 12/23/17 07:16 Est GFR ( Amer) > 60 12/23/17 07:16 Est GFR (Non-Af Amer) > 60 12/23/17 07:16 Random Glucose 102 mg/dL (65-105) 12/23/17 07:16 Calcium 9.2 mg/dl (8.6-10.4) 12/23/17 07:16 Total Bilirubin 0.4 mg/dL (0.2-1.3) 12/23/17 07:16 AST 33 U/L (14-36) 12/23/17 07:16 ALT 35 U/L (9-52) 12/23/17 07:16 Alkaline Phosphatase 72 U/L (38-126) 12/23/17 07:16 Total Creatine Kinase 83 U/L (30-135) 12/22/17 12:19 CK-MB (Mass) 0.80 ng/mL (0.0-3.38) 12/22/17 12:19 Troponin I < 0.0120 ng/mL (0.00-0.120) 12/22/17 23:34 Total Protein 6.8 g/dL (6.3-8.3) 12/23/17 07:16 Albumin 3.9 g/dL (3.5-5.0) 12/23/17 07:16 Globulin 2.9 gm/dL (2.2-3.9) 12/23/17 07:16 Albumin/Globulin Ratio 1.3 (1.0-2.1) 12/23/17 07:16 Urine Color Colorless (YELLOW) 12/22/17 12:58 Urine Clarity Clear (Clear) 12/22/17 12:58 Urine pH 6.0 (5.0-8.0) 12/22/17 12:58 Ur Specific [place] 1.003 (1.003-1.030) 12/22/17 12:58 Urine Protein Negative mg/dL (NEGATIVE) 12/22/17 12:58 Urine Glucose (UA) Normal mg/dL (Normal) 12/22/17 12:58 Urine Ketones Negative mg/dL (NEGATIVE) 12/22/17 12:58 Urine Blood Negative (NEGATIVE) 12/22/17 12:58 Urine Nitrate Negative (NEGATIVE) 12/22/17 12:58 Urine Bilirubin Negative (NEGATIVE) 12/22/17 12:58 Urine Urobilinogen Normal mg/dL (0.2-1.0) 12/22/17 12:58 Ur Leukocyte Esterase Neg Pedro/uL (Negative) 12/22/17 12:58 Urine WBC (Auto) < 1 /hpf (0-5) 12/22/17 12:58 Urine RBC (Auto) < 1 /hpf (0-3) 12/22/17 12:58 - Hospital Course Hospital Course: This is a 62 year old female who came to [facility] on 12/22 with what appears to be an anxiety attack with high blood pressure. Reportedly she was at home when she noticed her BP in the 200 systolic range and was feeling anxious. She promptly took her Xanax as well Toprol XL and came to the hospital. Patient has had several ER visit in past due to anxiety however without this very elevated BP. By the time we saw the patient in the ER the blood pressure was in the 150 systolic range. Patient overnight was NSR in the 70s to 80s. In the morning her BP was still in the 150 systolic range. She said she felt much better. CE negative x 3 and 12 lead EKG stable. CXRAY stable as well. Her CBC and CMP were stable. Patient will be discharged with PO azithromycin as she has had a cough and possibly bronchitis. She did not need refill on her Toprol XL, and I advised her to not break in half the Toprol XL. She should follow up with her physician and talk about blood pressure control Dewey Martinez Discharge Exam - Head Exam Head Exam: ATRAUMATIC, NORMAL INSPECTION, NORMOCEPHALIC - Eye Exam Eye Exam: EOMI, Normal appearance - Respiratory Exam Respiratory Exam: Clear to PA & Lateral, NORMAL BREATHING PATTERN, UNREMARKABLE - Cardiovascular Exam Cardiovascular Exam: REGULAR RHYTHM - GI/Abdominal Exam GI & Abdominal Exam: Normal Bowel Sounds, Unremarkable - Neurological Exam Neurological exam: Alert, CN II-XII Intact, Normal Gait, Oriented x3, Reflexes Normal - Psychiatric Exam Psychiatric exam: Normal Affect, Normal Mood Additional comments: She never was anxious or stressed appearing in the ER or when I saw her on the medical floors - Skin Skin Exam: Normal Color, Warm Discharge Plan - Discharge Medications Prescriptions: Azithromycin 250 mg PO BID #6 tablet - Follow Up Plan Condition: FAIR Disposition: HOME/ ROUTINE Referrals: Dewey Martinez DO [Staff Provider] -
[2017-12-23] MEDS ORDERED: Metoprolol Succinate 25 mg XL Tab PO SCH (10:00)
[2017-12-23 13:58] VITALS: BP 155/77
--- NOTE | 2017-12-24 21:01 | CARD ---
APPROVED REPORT Date of service: 12/22/2017 EKG Measurement Heart [id number] <Conclusion> Normal sinus rhythm Possible Left atrial enlargement Borderline ECG
== END 2017-12-23 13:58 | disposition home or self-care (01) ==
LOC: C.ER 10:52 → C.9E 13:48 → C.6T 17:54
PROVIDERS: ADMIT Hospitalist; ATTEND Hospitalist
DX: R07.9 Chest pain, unspecified (principal); I10 Essential (primary) hypertension; F41.9 Anxiety disorder, unspecified; G43.909 Migraine, unspecified, not intractable, without status migrainosus; Z82.49 Family history of ischemic heart disease and other diseases of the circulatory system; Z90.710 Acquired absence of both cervix and uterus; Z83.3 Family history of diabetes mellitus
CPT/HCPCS: 36415; 71045; 80053; 81001; 82550; 82553; 84484; 85025; 85610; 85730; 87040; 96365; 99285; G0378; J0456; J7050

== ENCOUNTER 2018-01-03 12:23 | Emergency (ER) | payer OTHER ==
[2018-01-03 12:38] VITALS: BMI 22.3
[2018-01-03 12:42] VITALS: TEMP 98.9
--- NOTE | 2018-01-03 13:43 | C.PDOC ---
History Of Present Illness 62 y/o female, w/PMhx of anxiety and HTN, presents to the ER complaining of anxiety which has been present for the past 6 hours. Patient states that she had an anxiety attack this morning and that the episode was similar to her past anxiety attacks. Patient took her Xanax medication with some relief. She notes that she did not take her bp medications because she was afraid of the interaction with Xanax. She checked her bp, noted as 170/113 at home. Denies headache, visual changes, dizziness, CP, SOB, palpitations, difficulty speaking, difficulty walking, parasthesias. Chief Complaint (Nursing): Anxiety History Per: Patient History/Exam Limitations: no limitations Onset/Duration Of Symptoms: Hrs Current Symptoms Are (Timing): Still Present Severity: Moderate Past Medical History Reviewed: Historical Data, Nursing Documentation, Vital Signs Vital Signs: Last Vital Signs Temp 98.9 F 01/03/18 12:41 Pulse 97 H 01/03/18 12:41 Resp 17 01/03/18 12:41 BP 170/93 H 01/03/18 12:41 Pulse Ox 96 01/03/18 12:41 - Medical History PMH: Anxiety (about health issues.), HTN, Migraine Denies: Diabetes, Hepatitis, HIV, Seizures, Sexually Transmitted Disease Other Surgeries: Hx of surgeries - [facility] Procedures INJECT/INFUSE NEC (11/23/12) Family History: States: Hypertension - Social History Hx Tobacco Use: No Hx Alcohol Use: No Hx Substance Use: No - Immunization History Hx Tetanus Toxoid Vaccination: No Hx Influenza Vaccination: No (DECLINES) Hx Pneumococcal Vaccination: No Review Of Systems Except As Marked, All Systems Reviewed And Found Negative. Eyes: Negative for: Vision Change Cardiovascular: Negative for: Chest Pain, Palpitations Respiratory: Negative for: Shortness of Breath Neurological: Negative for: Weakness, Headache Psych: Positive for: Anxiety Physical Exam - Physical Exam Appears: No Acute Distress, Other (anxious) Skin: Normal Color, Warm, Dry Head: Atraumatic, Normacephalic Eye(s): bilateral: Normal Inspection, PERRL, EOMI Nose: Normal Oral Mucosa: Moist Neck: Supple Chest: Symmetrical Cardiovascular: Rhythm Regular Respiratory: Normal Breath Sounds, No Rales, No Rhonchi, No Wheezing Neurological/Psych: Oriented x3, Normal Speech, Cerebellar Signs (normal), Normal Motor, Normal Sensation ED Course And Treatment O2 Sat by Pulse Oximetry: 96 (RA) Pulse Ox Interpretation: Normal Medical Decision Making Medical Decision Making: Initial Plan: --Have pt take missed home medication (Metoprolol) --Re-evaluate in 30 min, 1 hr 30min later: On re-eval, pt seems much less anxious, BP is dropping slowly. 160/86 1 hr later: On re-eval, pt is napping in chair. BP 149/90. Pt comfortable with discharge home. Had lengthy discussion with pt about importance of taking her home medications as prescribed. Educated pt on the fact that metoprolol and xanax can be taken simultaneously without adverse reaction. Pt seems to understand and agrees with plan. Comfortable with discharge home. Impression: Anxiety Plan: --take home medications as prescribed --check BP twice daily and record to bring to PMD --followup PMD within 2 days --followup psychiatrist as scheduled --return to ER if symptoms worsen Disposition - Disposition Referrals: [facility] [Outside] Disposition: HOME/ ROUTINE Disposition Time: 14:00 Condition: IMPROVED Additional Instructions: Take home medications as prescribed Increase fluids Check BP twice daily and record values Followup with primary doctor within 2 days Followup with psychiatrist as scheduled Return to ER if symptoms worsen or if you have chest pain, shortness of breath, severe headache or dizziness Instructions: Anxiety, Adult (DC) Forms: [facility] (Romansh) - Clinical Impression Clinical Impression: Anxiety, Elevated blood pressure reading - PA / RELATIONSHIP MANAGER / Resident Statement MD/DO has reviewed & agrees with the documentation as recorded. - Scribe Statement The provider has reviewed the documentation as recorded by the Sridhar Yoder Provider Attestation All medical record entries made by the Sridhar were at my direction and personally dictated by me. I have reviewed the chart and agree that the record accurately reflects my personal performance of the history, physical exam, medical decision making, and the department course for this patient. I have also personally directed, reviewed, and agree with the discharge instructions and disposition.
--- NOTE | 2018-01-03 13:56 | C.PDOC ---
Chief Complaint (Nursing): Anxiety Past Medical History Vital Signs: Last Vital Signs Temp 98.9 F 01/03/18 12:41 Pulse 97 H 01/03/18 12:41 Resp 17 01/03/18 12:41 BP 170/93 H 01/03/18 12:41 Pulse Ox 96 01/03/18 12:41 - Medical History PMH: Anxiety (about health issues.), HTN, Migraine Denies: Diabetes, Hepatitis, HIV, Seizures, Sexually Transmitted Disease - [facility] Procedures INJECT/INFUSE NEC (11/23/12) Family History: States: Unknown Family Hx, Hypertension - Social History Hx Tobacco Use: No Hx Alcohol Use: No Hx Substance Use: No - Immunization History Hx Tetanus Toxoid Vaccination: No Hx Influenza Vaccination: No (DECLINES) Hx Pneumococcal Vaccination: No ED Course And Treatment O2 Sat by Pulse Oximetry: 96 Disposition - Disposition Referrals: [facility] [Outside] Disposition: HOME/ ROUTINE Disposition Time: 14:00 Condition: IMPROVED Additional Instructions: Take home medications as prescribed Increase fluids Check BP twice daily and record values Followup with primary doctor within 2 days Followup with psychiatrist as scheduled Return to ER if symptoms worsen or if you have chest pain, shortness of breath, severe headache or dizziness Instructions: Anxiety, Adult (DC) - Clinical Impression Clinical Impression: Anxiety, Elevated blood pressure reading
[2018-01-03 14:21] VITALS: BP 149/91
[2018-01-03 14:34] VITALS: PULSE 82; RESP 16
[2018-01-03 23:54] VITALS: O2SAT 96
== END 2018-01-03 14:34 | disposition home or self-care (01) ==
LOC: C.ER 12:23
DX: F41.9 Anxiety disorder, unspecified (principal); I10 Essential (primary) hypertension

== ENCOUNTER 2018-01-22 16:55 | Emergency (ER) | payer OTHER ==
[2018-01-22 16:55] VITALS: BMI 22.3
[2018-01-22 17:18] VITALS: TEMP 97.9
[2018-01-22] MEDS ORDERED: Sodium Chloride 0.9% 1,000 ML IV STA (18:04)
--- NOTE | 2018-01-22 18:26 | C.PDOC ---
History Of Present Illness Patient c/o SOB started this morning. Patient sts she has h/o HTN and Anxiety. Patient sts she took Xanax and Metoprolol, but symptoms persists that prompted her visit to ED. Patient denies chest pain. <Maryjo Manzo - Last Filed: 01/22/18 19:08> History Per: Patient History/Exam Limitations: no limitations Onset/Duration Of Symptoms: Days (1) Current Symptoms Are (Timing): Still Present <Maryjo Manzo - Last Filed: 01/22/18 19:08> <Vince Van - Last Filed: 01/22/18 20:52> Chief Complaint (Nursing): Shortness Of Breath Past Medical History Reviewed: Historical Data, Nursing Documentation, Vital Signs Vital Signs: Last Vital Signs Temp 97.9 F 01/22/18 17:18 Pulse 94 H 01/22/18 17:30 Resp 18 01/22/18 17:30 BP 173/78 H 01/22/18 17:30 Pulse Ox 99 01/22/18 17:30 - Medical History PMH: Anxiety (about health issues.), Bronchitis, HTN, Migraine, Pneumonia Denies: Diabetes, Hepatitis, HIV, Seizures, Sexually Transmitted Disease - [facility] Procedures INJECT/INFUSE NEC (11/23/12) Family History: States: Unknown Family Hx, Hypertension - Social History Hx Tobacco Use: No Hx Alcohol Use: No Hx Substance Use: No - Immunization History Hx Tetanus Toxoid Vaccination: No Hx Influenza Vaccination: No (DECLINES) Hx Pneumococcal Vaccination: No <Maryjo Manzo - Last Filed: 01/22/18 19:08> Vital Signs: Last Vital Signs Temp 97.9 F 01/22/18 17:18 Pulse 94 H 01/22/18 17:30 Resp 18 01/22/18 17:30 BP 173/78 H 01/22/18 17:30 Pulse Ox 99 01/22/18 19:08 - [facility] Procedures INJECT/INFUSE NEC (11/23/12) <Vince Van - Last Filed: 01/22/18 20:52> Review Of Systems Except As Marked, All Systems Reviewed And Found Negative. Constitutional: Negative for: Fever, Sweats Cardiovascular: Negative for: Chest Pain, Palpitations, Edema, Light Headedness Respiratory: Positive for: Shortness of Breath. Negative for: Hemoptysis, Pleuritic Pain Gastrointestinal: Negative for: Vomiting, Abdominal Pain Musculoskeletal: Negative for: Back Pain Psych: Positive for: Anxiety <Maryjo Manzo - Last Filed: 01/22/18 19:08> Physical Exam - Physical Exam Appears: Well, Non-toxic, No Acute Distress Skin: Normal Color, Warm, No Diaphoretic Head: Atraumatic, Normacephalic Eye(s): bilateral: Normal Inspection Nose: No Discharge Tongue: No Swelling Throat: Normal, No Erythema Neck: Normal, Normal ROM, No Midline Cervical Tenderness, No Paracervical Tenderness Chest: Symmetrical, No Deformity, No Tenderness Cardiovascular: Rhythm Regular, No Edema Respiratory: Normal Breath Sounds, No Rales, No Rhonchi, No Wheezing Gastrointestinal/Abdominal: Soft, No Tenderness Extremity: No Tenderness, No Calf Tenderness, No Swelling Neurological/Psych: Oriented x3, Normal Speech, Normal Cognition, Normal Motor, Normal Sensation <Maryjo Manzo - Last Filed: 01/22/18 19:08> ED Course And Treatment - Laboratory Results Result Diagrams: 01/22/18 18:37 O2 Sat by Pulse Oximetry: 99 - Other Rad CXR X-Ray: Viewed By Me, Read By Radiologist Interpretation: Accession No. : [id number]. Patient Name / ID : SHANNON BRADY / [id number]. Exam Date : 01/22/2018 18:27:15 ( Approved ). Study Comment : Sex / Age : F / 62Y. Creator : Mary Alexander MD. Dictator : Mary Alexander MD. [employer] Research Associate : Buyer Agent : Mary Alexander MD. Approver2 : Report Date : 01/22/2018 18:35:34. My Comment : . Date of service: 01/22/2018. PROCEDURE: CHEST RADIOGRAPH, 1 VIEW. HISTORY: SOB. COMPARISON: 12/22/2017. FINDINGS: LUNGS: The lungs are well inflated and clear. PLEURA: No pneumothorax or pleural effusion. CARDIOVASCULAR: The heart is normal in size. No aortic atherosclerotic calcifications present. OSSEOUS STRUCTURES: Within normal limits for the patient's age. VISUALIZED UPPER ABDOMEN: Normal. OTHER FINDINGS: None. IMPRESSION: No active pulmonary disease. <Maryjo Manzo - Last Filed: 01/22/18 19:08> - Laboratory Results Result Diagrams: 01/22/18 18:37 01/22/18 18:37 ECG: Interpreted By Me, Viewed By Me ECG Rhythm: Sinus Rhythm (76), Nonspecific Changes Pulse Ox Interpretation: Normal Reevaluation Time: 20:50 Reassessment Condition: Improved <Vince Van - Last Filed: 01/22/18 20:52> Disposition - Disposition Disposition Time: 19:02 <Maryjo Manzo - Last Filed: 01/22/18 19:08> Counseled Patient/Family Regarding: Studies Performed, Diagnosis, Need For Followup <Vince Van - Last Filed: 01/22/18 20:52> - Disposition Referrals: Dieudonne Echeverria MD [Staff Provider] - Disposition: HOME/ ROUTINE Condition: FAIR Instructions: Anxiety, Adult (DC) Forms: [email or web address] [facility] (Slovenian) - Clinical Impression Clinical Impression: Anxiety Physician Patient Turnover Patient Signed Over To: Vince Van Handoff Comments: pending labs, ekg, dispo <Maryjo Manzo - Last Filed: 01/22/18 19:08>
--- NOTE | 2018-01-22 18:39 | RAD ---
Date of service: 01/22/2018 PROCEDURE: CHEST RADIOGRAPH, 1 VIEW HISTORY: SOB COMPARISON: 12/22/2017. FINDINGS: LUNGS: The lungs are well inflated and clear. PLEURA: No pneumothorax or pleural effusion. CARDIOVASCULAR: The heart is normal in size. No aortic atherosclerotic calcifications present. OSSEOUS STRUCTURES: Within normal limits for the patient's age. VISUALIZED UPPER ABDOMEN: Normal. OTHER FINDINGS: None. IMPRESSION: No active pulmonary disease.
[2018-01-22 18:42] LABS: BASO # 0.1 K/uL (0.0-0.2); EOS # 0.2 K/uL (0.0-0.7); EOS % 2.1 % (0.0-4.0); HEMOGLOBIN 13.1 g/dL (11.0-16.0); LYMPH # 2.9 K/uL (1.0-4.3); MEAN CELL VOLUME 80.8 fL (81.0-99.0); MEAN CORPUSCULAR HEMOGLOBIN 26.5 pg (27.0-31.0); MEAN CORPUSCULAR HGB CONC 32.7 g/dL (33.0-37.0); MEAN PLATELET VOLUME 10.8 fL (7.2-11.7); MONO # 0.7 K/uL (0.0-0.8); MONO % 7.6 % (0.0-10.0); NEUT # 5.4 K/uL (1.8-7.0); NEUT % 58.3 % (50.0-75.0); NRBC % 0.1 % (0.0-2.0); RBC 4.93 Mil/uL (3.80-5.20); RED CELL DISTRIBUTION WIDTH 13.3 % (11.5-14.5); WHITE BLOOD COUNT 9.3 K/uL (4.8-10.8)
[2018-01-22 18:54] LABS: PARTIAL THROMBOPLASTIN TIME 31 SECONDS (21-34); PROTHROMBIN TIME 11.4 SECONDS (9.7-12.2)
[2018-01-22 18:55] LABS: URINE BILIRUBIN NEGATIVE (NEGATIVE); URINE BLOOD NEGATIVE (NEGATIVE); URINE CLARITY Clear (Clear); URINE COLOR Colorless (YELLOW); URINE GLUCOSE (UA) NORMAL (Normal); URINE LEUKOCYTE ESTERASE NEG Leu/uL (Negative); URINE PROTEIN NEGATIVE (NEGATIVE); URINE UROBILINOGEN NORMAL mg/dL (0.2-1.0)
[2018-01-22 19:09] LABS: BARBITURATES, UR NEGATIVE (NEGATIVE); BENZODIAZEPINES, UR NEGATIVE (NEGATIVE); OPIATES, UR NEGATIVE (NEGATIVE); PHENCYCLIDINE, UR NEGATIVE (NEGATIVE)
[2018-01-22 19:19] LABS: ALB/GLOB RATIO 1.4 (1.0-2.1); ALBUMIN 4.7 g/dL (3.5-5.0); ALT/SGPT 27 U/L (9-52); AST/SGOT 33 U/L (14-36); BLOOD UREA NITROGEN 20 mg/dL (7-17); GFR NON-AFRICAN AMERICAN > 60
[2018-01-22 19:30] LABS: CK-MB 1.11 ng/mL (0.0-3.38)
[2018-01-22 19:47] LABS: D DIMER < 200 ng/mlDDU (0-243)
[2018-01-22 20:04] VITALS: BP 174/83; PULSE 85; RESP 20; O2SAT 98
--- NOTE | 2018-01-23 19:47 | CARD ---
APPROVED REPORT Date of service: 01/22/2018 EKG Measurement Heart [id number] <Conclusion> Normal sinus rhythm Normal ECG
== END 2018-01-22 20:59 | disposition home or self-care (01) ==
LOC: C.ER 16:55
DX: F41.9 Anxiety disorder, unspecified (principal); I10 Essential (primary) hypertension
CPT/HCPCS: 71045; 80053; 80324; 80345; 80346; 80349; 80353; 80358; 80361; 81001; 82550; 82553; 83992; 84484; 85025; 85378; 85610; 85730; 93005; 96360; 99285; J7030

== ENCOUNTER 2018-01-26 02:14 | Emergency (ER) | payer OTHER ==
[2018-01-26 02:16] VITALS: BMI 22.3
[2018-01-26 02:30] VITALS: TEMP 97.9
--- NOTE | 2018-01-26 02:33 | C.PDOC ---
History Of Present Illness Patient came to Ed extremely anxious. Patient sts she has h/o HTN and anxiety, she is taking BP multiple times a day and it was elevated that makes patient even more anxious. Patient denies chest pain, SOB, headache, dizziness. patient was seen here 4 days ago for similar symptoms and had blood work that was without significant abnormalities. Patient sts she had an appointment with her PMD scheduled for yesterday, but she didn't go because she felt anxious. Time Seen by Provider: 01/26/18 02:32 Chief Complaint (Nursing): High Blood Pressure History Per: Patient History/Exam Limitations: no limitations Current Symptoms Are (Timing): Still Present Associated Symptoms: denies: Chest Pain, Dyspnea, Dizziness, Blurred Vision, Focal Weakness, Headache Quality Of Symptoms: Other (anxious) Past Medical History Reviewed: Historical Data, Nursing Documentation, Vital Signs Vital Signs: Last Vital Signs Temp 97.9 F 01/26/18 02:24 Pulse 96 H 01/26/18 02:24 Resp 19 01/26/18 02:24 BP 180/95 H 01/26/18 02:24 Pulse Ox 98 01/26/18 02:24 - Medical History PMH: Anxiety (about health issues.), Bronchitis, HTN, Migraine, Pneumonia Denies: Diabetes, Hepatitis, HIV, Seizures, Sexually Transmitted Disease - [facility] Procedures INJECT/INFUSE NEC (11/23/12) Family History: States: Unknown Family Hx, Hypertension - Social History Hx Tobacco Use: No Hx Alcohol Use: No Hx Substance Use: No - Immunization History Hx Tetanus Toxoid Vaccination: No Hx Influenza Vaccination: No (DECLINES) Hx Pneumococcal Vaccination: No Review Of Systems Except As Marked, All Systems Reviewed And Found Negative. Physical Exam - Physical Exam Appears: Well, Non-toxic Skin: Normal Color, Warm, No Diaphoretic, No Rash Head: Atraumatic, Normacephalic Eye(s): bilateral: Normal Inspection Chest: Symmetrical Cardiovascular: Rhythm Regular Respiratory: Normal Breath Sounds Gastrointestinal/Abdominal: Soft, No Tenderness Extremity: Normal ROM Neurological/Psych: Oriented x3, Normal Speech, Normal Cognition, Normal Motor, Normal Sensation ED Course And Treatment O2 Sat by Pulse Oximetry: 98 Progress Note: Xanax 0.25 mg given. On re-evaluation patient feels better, 2 readings of BP are better. patient is stable to be d/c home with PMD follow up. Disposition - Disposition Referrals: Dieudonne Echeverria MD [Staff Provider] - Disposition: HOME/ ROUTINE Disposition Time: 03:58 Condition: IMPROVED Additional Instructions: Follow up with your PMD within 1-2 days. Return to ED if feel worse. Forms: [employer] (Pashto) - Clinical Impression Clinical Impression: Anxiety about health, Elevated blood pressure reading
[2018-01-26 02:45] VITALS: RESP 20
[2018-01-26 03:37] VITALS: BP 146/69; PULSE 83
[2018-01-26 03:58] VITALS: O2SAT 98
== END 2018-01-26 04:15 | disposition home or self-care (01) ==
LOC: C.ER 02:14
DX: F41.9 Anxiety disorder, unspecified (principal); I10 Essential (primary) hypertension

== ENCOUNTER 2018-04-01 08:44 | Emergency (ER) | payer MEDICAID, OTHER ==
[2018-04-01 08:44] VITALS: BMI 22.3
--- NOTE | 2018-04-01 09:57 | C.PDOC ---
History Of Present Illness Patient is a 63 year old female biba, with a PMHx of anxiety and HTN, presenting to the ED with complaints of anxiety that began in the morning. Patient states her blood pressure is elevated due to the anxiety and notes mild nausea. She states that her daily medications include Metropolol and Clonazepam 0.6mg, but has not taken either today. Patient denies SI/HI, CP, SOB, palpitations, vomiting, diarrhea, headache, or dizziness. Time Seen by Provider: 04/01/18 08:59 Chief Complaint (Nursing): Anxiety History Per: Patient, EMS History/Exam Limitations: no limitations Onset/Duration Of Symptoms: Hrs (morning ) Current Symptoms Are (Timing): Still Present Suicide/Self Injury Attempted (Context): None Modifying Factor(s): None Associated Symptoms: Anxiety. denies: Suicidal Thoughts, Suicidal Plan Involuntary Hold By: None Recent travel outside of the [place]: No Additional History Per: Patient, EMS Past Medical History Reviewed: Historical Data, Nursing Documentation, Vital Signs Vital Signs: Last Vital Signs Temp 98.3 F 04/01/18 08:57 Pulse 112 H 04/01/18 08:57 Resp 19 04/01/18 08:57 BP 187/105 H 04/01/18 08:57 Pulse Ox 98 04/01/18 08:57 - Medical History PMH: Anxiety, Bronchitis, HTN, Migraine, Pneumonia Denies: Diabetes, Hepatitis, HIV, Seizures, Sexually Transmitted Disease Surgical History: No Surg Hx - [facility] Procedures INJECT/INFUSE NEC (11/23/12) Family History: States: Unknown Family Hx, Hypertension - Social History Hx Tobacco Use: No Hx Alcohol Use: No Hx Substance Use: No - Immunization History Hx Tetanus Toxoid Vaccination: No Hx Influenza Vaccination: No (DECLINES) Hx Pneumococcal Vaccination: No Review Of Systems Cardiovascular: Negative for: Chest Pain, Palpitations Respiratory: Negative for: Shortness of Breath Gastrointestinal: Negative for: Vomiting, Diarrhea Neurological: Negative for: Headache, Dizziness Psych: Positive for: Anxiety. Negative for: Suicidal ideation, Other (homicidal ideation ) Physical Exam - Physical Exam Appears: Non-toxic, Other (appears anxious ) Skin: Normal Color, Warm, Dry Head: Atraumatic, Normacephalic Oral Mucosa: Moist Neck: Supple Chest: Symmetrical, No Deformity Cardiovascular: No Rhythm Regular (mild tachycardia ), No Murmur Respiratory: Normal Breath Sounds, No Rales, No Rhonchi, No Wheezing Gastrointestinal/Abdominal: Soft, No Tenderness, No Guarding, No Rebound Extremity: Normal ROM Neurological/Psych: Oriented x3 ED Course And Treatment O2 Sat by Pulse Oximetry: 98 (on RA) Pulse Ox Interpretation: Normal Progress Note: Klonopin 0.5mg PO was given. Disposition Counseled Patient/Family Regarding: Diagnosis, Need For Followup - Disposition Referrals: Jalen Molina MD [Medical Doctor] - Disposition: HOME/ ROUTINE Disposition Time: 10:30 Condition: STABLE Additional Instructions: FOLLOW UP WITH YOUR DOCTOR IN 1-2 DAYS TAKE YOUR BLOOD PRESSURE AND ANXIETY MEDICATIONS DIRECTED RETURN TO ER IF SYMPTOMS WORSEN Instructions: Anxiety, Adult (DC), High Blood Pressure (DC) Forms: [employer] (Costa Rican) Print Language: LAO - Clinical Impression Clinical Impression: Anxiety disorder, Hypertension - Scribe Statement The provider has reviewed the documentation as recorded by the Sridhar Cole All medical record entries made by the Scribe were at my direction and personally dictated by me. I have reviewed the chart and agree that the record accurately reflects my personal performance of the history, physical exam, medical decision making, and the department course for this patient. I have also personally directed, reviewed, and agree with the discharge instructions and disposition.
[2018-04-01 10:31] VITALS: BP 155/90; PULSE 68; RESP 18; TEMP 98.5
[2018-04-01 10:33] VITALS: O2SAT 98
== END 2018-04-01 11:08 | disposition home or self-care (01) ==
LOC: C.ER 08:44
DX: F41.9 Anxiety disorder, unspecified (principal); I10 Essential (primary) hypertension

== ENCOUNTER 2018-04-08 14:22 | Emergency (ER) | payer MEDICAID, OTHER ==
[2018-04-08 14:23] VITALS: BMI 22.3
[2018-04-08 14:37] VITALS: TEMP 97.3
[2018-04-08 15:29] VITALS: O2SAT 100
--- NOTE | 2018-04-08 15:44 | C.PDOC ---
History Of Present Illness Patient is a 63 year old female, with a PMHx of HTN and anxiety, who presents to the ED for elevated blood pressure and feelings of anxiety. Patient was prescribed and told to take Metopolol sporadically and Xanax QD for the past few months and has been compliant. Patient also notes that she suffers from OCD causing her to check her bp 5-10x per day and has a lot of anxiety surrounding that. She denies fever, chills, headache, CP, SOB, nausea, vomiting, or diarrhea. Time Seen by Provider: 04/08/18 14:43 Chief Complaint (Nursing): High Blood Pressure History Per: Patient History/Exam Limitations: no limitations Onset/Duration Of Symptoms: Days Associated Symptoms: denies: Chest Pain, Headache, Other (SOB, nausea, vomiting, diarrhea) Quality Of Symptoms: Asymptomatic Recent travel outside of the [place]: No Additional History Per: Patient Past Medical History Reviewed: Historical Data, Nursing Documentation, Vital Signs Vital Signs: Last Vital Signs Temp 97.3 F L 04/08/18 14:31 Pulse 102 H 04/08/18 15:15 Resp 19 04/08/18 15:15 BP 187/97 H 04/08/18 15:28 Pulse Ox 100 04/08/18 15:15 - Medical History PMH: Anxiety, Bronchitis, HTN, Migraine, Pneumonia Denies: Diabetes, Hepatitis, HIV, Seizures, Sexually Transmitted Disease Surgical History: No Surg Hx - [facility] Procedures INJECT/INFUSE NEC (11/23/12) Family History: States: Unknown Family Hx, Hypertension - Social History Hx Tobacco Use: No Hx Alcohol Use: No Hx Substance Use: No - Immunization History Hx Tetanus Toxoid Vaccination: No Hx Influenza Vaccination: No (DECLINES) Hx Pneumococcal Vaccination: No Review Of Systems Constitutional: Negative for: Fever, Chills Cardiovascular: Negative for: Chest Pain Respiratory: Negative for: Shortness of Breath Gastrointestinal: Negative for: Nausea, Vomiting, Diarrhea Neurological: Negative for: Headache Psych: Positive for: Anxiety Physical Exam - Physical Exam Appears: Non-toxic, No Acute Distress Skin: Normal Color, Warm, Dry Head: Atraumatic, Normacephalic Oral Mucosa: Moist Neck: Normal ROM, Supple Chest: Symmetrical, No Deformity Cardiovascular: Rhythm Regular, No Murmur Respiratory: Normal Breath Sounds, No Rales, No Rhonchi, No Wheezing Gastrointestinal/Abdominal: Soft, No Tenderness, No Guarding, No Rebound Extremity: Normal ROM Neurological/Psych: Oriented x3, Normal Speech, Normal Cognition ED Course And Treatment ECG Rhythm: Sinus Tachycardia Interpretation Of ECG: No ST elevation or depression. Rate From EC O2 Sat by Pulse Oximetry: 100 (on RA) Pulse Ox Interpretation: Normal Medical Decision Making Medical Decision Making: Plan: EKG ordered and reviewed. Klonopin 0.5mg PO and Lopressor 50mg PO given. Disposition Counseled Patient/Family Regarding: Diagnosis, Need For Followup - Disposition Disposition: HOME/ ROUTINE Disposition Time: 15:43 Condition: STABLE Instructions: Anxiety, Adult (DC) Forms: [facility] (Indian), Gen Discharge Inst Indian - POA Present On Arrival: None - Clinical Impression Clinical Impression: Anxiety, Hypertension - Scribe Statement The provider has reviewed the documentation as recorded by the Sridhar Cole All medical record entries made by the Scribe were at my direction and personally dictated by me. I have reviewed the chart and agree that the record accurately reflects my personal performance of the history, physical exam, medical decision making, and the department course for this patient. I have also personally directed, reviewed, and agree with the discharge instructions and disposition.
[2018-04-08 16:23] VITALS: BP 169/93; PULSE 74; RESP 18
--- NOTE | 2018-04-09 11:41 | CARD ---
APPROVED REPORT Date of service: 04/08/2018 EKG Measurement Heart [id number] <Conclusion> Sinus tachycardia Left axis deviation Minimal voltage criteria for LVH, may be normal variant Abnormal ECG
== END 2018-04-08 17:16 | disposition home or self-care (01) ==
LOC: C.ER 14:22
DX: F41.9 Anxiety disorder, unspecified (principal); I10 Essential (primary) hypertension

== ENCOUNTER 2018-04-11 14:07 | Outpatient (CLI) | payer OTHER, MEDICAID | END 2018-04-11 14:08 | disposition home or self-care (01) | LOC: C.DIABED 14:07 ==

== ENCOUNTER 2018-04-29 10:53 | Emergency (ER) | payer MEDICAID, OTHER ==
[2018-04-29 10:57] VITALS: BMI 24.0
[2018-04-29 11:00] VITALS: BP 153/94; PULSE 102; RESP 20; TEMP 98.5; O2SAT 96
--- NOTE | 2018-04-29 12:20 | C.PDOC ---
Chief Complaint (Nursing): Flu-like Symptoms Past Medical History Vital Signs: Last Vital Signs Temp 98.5 F 04/29/18 10:57 Pulse 102 H 04/29/18 10:57 Resp 20 04/29/18 10:57 BP 153/94 H 04/29/18 10:57 Pulse Ox 96 04/29/18 10:57 - Medical History PMH: Anxiety, Bronchitis, HTN, Migraine, Pneumonia Denies: Diabetes, Hepatitis, HIV, Seizures, Sexually Transmitted Disease - [facility] Procedures INJECT/INFUSE NEC (11/23/12) Family History: States: Unknown Family Hx, Hypertension - Social History Hx Tobacco Use: No Hx Alcohol Use: No Hx Substance Use: No - Immunization History Hx Tetanus Toxoid Vaccination: No Hx Influenza Vaccination: No (DECLINES) Hx Pneumococcal Vaccination: No ED Course And Treatment O2 Sat by Pulse Oximetry: 96 Disposition Counseled Patient/Family Regarding: Diagnosis, Need For Followup, Rx Given - Disposition Disposition: HOME/ ROUTINE Disposition Time: 12:18 Condition: STABLE Prescriptions: Ibuprofen [Motrin Tab] 600 mg PO TID 10 Days tab Instructions: Sore Throat, Adult (DC) Forms: [facility] Connect (Frisian), General Discharge Instructions - Clinical Impression Clinical Impression: Tonsillitis
--- NOTE | 2018-04-29 12:22 | C.PDOC ---
History Of Present Illness 63 year old female with a PMHx of hypertension, anxiety, migraines, and vertigo presents to the ED complaining of a sore throat and runny nose since Sunday. States her tonsils feel swollen. Patient has tried taking Tylenol with minimal relief. She denies any cough, SOB, or inability to swallow. Time Seen by Provider: 04/29/18 11:31 Chief Complaint (Nursing): Flu-like Symptoms History Per: Patient History/Exam Limitations: no limitations Onset/Duration Of Symptoms: Days Current Symptoms Are (Timing): Still Present Location Of Pain: Throat Past Medical History Reviewed: Historical Data, Nursing Documentation, Vital Signs Vital Signs: Last Vital Signs Temp 98.5 F 04/29/18 10:57 Pulse 102 H 04/29/18 10:57 Resp 20 04/29/18 10:57 BP 153/94 H 04/29/18 10:57 Pulse Ox 96 04/29/18 10:57 - Medical History PMH: Anxiety, Bronchitis, HTN, Migraine, Pneumonia Denies: Diabetes, Hepatitis, HIV, Seizures, [facility]ually [facility]mitted [facility] - [facility] INJECT/INFUSE NEC (11/23/12) Family History: States: Unknown Family Hx, Hypertension - Social History Hx Tobacco Use: No Hx Alcohol Use: No Hx Substance Use: No - Immunization History Hx Tetanus Toxoid Vaccination: No Hx Influenza Vaccination: No (DECLINES) Hx Pneumococcal Vaccination: No Review Of Systems Constitutional: Negative for: Fever, Chills, Weakness Eyes: Negative for: Redness, Other (scleral icterus) ENT: Positive for: Nose Discharge, Nose Congestion, Throat Pain Cardiovascular: Negative for: Chest Pain Respiratory: Negative for: Cough, Shortness of Breath Gastrointestinal: Negative for: Nausea, Vomiting, Diarrhea Genitourinary: Negative for: Dysuria, Frequency Musculoskeletal: Negative for: Back Pain Skin: Negative for: Rash Neurological: Negative for: Weakness, Headache, Dizziness Physical Exam - Physical Exam Appears: Well, Non-toxic, No Acute Distress Skin: Normal Color, Warm, No Rash Head: Atraumatic, Normacephalic Eye(s): bilateral: Normal Inspection (no scleral icterus), PERRL, EOMI Ear(s): Bilateral: Normal (no drainage) Nose: Normal Throat: Exudate (Enlarged tonsils with exudate on the left side), Other (Soft palate appears symmetric, uvula midline, airway patent) Neck: Normal ROM, Supple Chest: Symmetrical Respiratory: No Accessory Muscle Use, Other (Normal inspiratory effort) Extremity: Bilateral: Atraumatic, Normal ROM Pulses: Left Radial: Normal, Right Radial: Normal Neurological/Psych: Oriented x3, Normal Cranial Nerves ED Course And Treatment O2 Sat by Pulse Oximetry: 96 (RA) Pulse Ox Interpretation: Normal Medical Decision Making Medical Decision Making: Plan: Rapid strep test and throat cultures sent. Disposition Counseled Patient/Family Regarding: Studies Performed, Diagnosis, Need For Followup, Rx Given - Disposition Disposition: HOME/ ROUTINE Disposition Time: 12:18 Condition: STABLE Prescriptions: Ibuprofen [Motrin Tab] 600 mg PO TID 10 Days tab Instructions: Sore Throat, Adult (DC) Forms: General Discharge Instructions, [facility] (Faroese) - POA Present On Arrival: None - Clinical Impression Clinical Impression: Tonsillitis - PA / DENTAL COORDINATOR / Resident Statement MD/DO has reviewed & agrees with the documentation as recorded. - Scribe Statement The provider has reviewed the documentation as recorded by the Scribchristie Ortega All medical record entries made by the Scribe were at my direction and personally dictated by me. I have reviewed the chart and agree that the record accurately reflects my personal performance of the history, physical exam, medi yanet decision making, and the department course for this patient. I have also personally directed, reviewed, and agree with the discharge instructions and disposition.
== END 2018-04-29 13:28 | disposition home or self-care (01) ==
LOC: C.ER 10:53
DX: J03.90 Acute tonsillitis, unspecified (principal)

== ENCOUNTER 2018-06-04 11:08 | Emergency (ER) | payer MEDICAID, OTHER ==
[2018-06-04 11:09] VITALS: BMI 24.0
--- NOTE | 2018-06-04 15:24 | C.PDOC ---
History Of Present Illness 63 y/o female,w/PMhx of HTN and anxiety, presents to the ER for evaluation of elevated blood pressure levels. Patient states that she has worsening anxiety today which may be causing her to have elevated blood pressure. Patient reports that she took Metoprolol at home. However, she did not want to take Klonopin so she came to the ER. Denies having CP,SOB, and changes in appetite. Time Seen by Provider: 06/04/18 13:54 Chief Complaint (Nursing): High Blood Pressure History Per: Patient History/Exam Limitations: no limitations Onset/Duration Of Symptoms: Hrs Current Symptoms Are (Timing): Still Present Severity: Moderate Past Medical History Reviewed: Historical Data, Nursing Documentation, Vital Signs Vital Signs: Last Vital Signs Temp 98.5 F 06/04/18 11:19 Pulse 94 H 06/04/18 11:19 Resp 18 06/04/18 11:19 BP 185/99 H 06/04/18 11:19 Pulse Ox 98 06/04/18 11:19 - Medical History PMH: Anxiety, Bronchitis, HTN, Migraine, Pneumonia Denies: Diabetes, Hepatitis, HIV, Seizures, Sexually Transmitted Disease Other Surgeries: Hx of surgeries - [employer] Procedures INJECT/INFUSE NEC (11/23/12) Family History: States: Hypertension - Social History Hx Tobacco Use: No Hx Alcohol Use: No Hx Substance Use: No - Immunization History Hx Tetanus Toxoid Vaccination: No Hx Influenza Vaccination: No (DECLINES) Hx Pneumococcal Vaccination: No Review Of Systems Except As Marked, All Systems Reviewed And Found Negative. Constitutional: Positive for: Other (elevated blood pressure). Negative for: Fever, Chills Cardiovascular: Negative for: Chest Pain Respiratory: Negative for: Shortness of Breath Physical Exam - Physical Exam Appears: Non-toxic, No Acute Distress Skin: Normal Color, Warm, Dry Head: Atraumatic, Normacephalic Eye(s): bilateral: Normal Inspection Nose: Normal Oral Mucosa: Moist Neck: Supple Chest: Symmetrical Cardiovascular: Rhythm Regular Respiratory: Normal Breath Sounds, No Rales, No Rhonchi, No Wheezing Gastrointestinal/Abdominal: Normal Exam, Soft, No Tenderness, No Guarding, No Rebound Neurological/Psych: Oriented x3, Normal Speech ED Course And Treatment O2 Sat by Pulse Oximetry: 98 (RA) Pulse Ox Interpretation: Normal Medical Decision Making Medical Decision Making: Impression: HTN secondary to anxiety Plan: --Klonopin PO Of note, patient is declining further workup until she receives Klonopin. 1620 Pt with improved anxiety and BP with Klonopin. Pt requesting to go home. Pt will follow up with primary medical doctor for routing follow up and medication refills. Return parameters discussed. Disposition - Disposition Disposition: HOME/ ROUTINE Disposition Time: 16:20 Condition: IMPROVED Additional Instructions: Follow up with primary medical doctor. Return to the emergency department if symptoms worsen. Instructions: High Blood Pressure (DC), Anxiety, Adult (DC) Forms: [employer] ([employer]) Print Language: SOUTH SUDANESE - Clinical Impression Clinical Impression: Anxiety disorder, Elevated blood pressure reading - Scribe Statement The provider has reviewed the documentation as recorded by the Sridhar Yoder Provider Attestation: All medical record entries made by the Sridhar were at my direction and personally dictated by me. I have reviewed the chart and agree that the record accurately reflects my personal performance of the history, physical exam, medical decision making, and the department course for this patient. I have also personally directed, reviewed, and agree with the discharge instructions and disposition.
[2018-06-04 15:39] VITALS: PULSE 81
[2018-06-04 16:27] VITALS: BP 165/76; RESP 16; TEMP 98; O2SAT 98
== END 2018-06-04 16:42 | disposition home or self-care (01) ==
LOC: C.ER 11:08
DX: F41.9 Anxiety disorder, unspecified (principal); R03.0 Elevated blood-pressure reading, without diagnosis of hypertension